=== PATIENT | male | born 1960 | race Caucasian/White ===

== ENCOUNTER 2017-08-14 14:47 | Emergency (ER) | payer OTHER ==
[~2017-08-14] VITALS: Ht 172.7 cm; Wt 83.3 kg
[2017-08-14] MEDS ORDERED: ATENOLOL25 MG PO (15:31)
[2017-08-14] MEDS ORDERED: OXYCONTIN30 MG PO (15:33)
[2017-08-14] MEDS ORDERED: OXYCODONE HCL30 MG PO (15:34)
[2017-08-14] MEDS ORDERED: HYDROCHLOROTHIA25 MG PO (15:35)
[2017-08-14] MEDS ORDERED: IRBESARTAN300 MG PO (15:35)
[2017-08-14 18:31] VITALS: BP 100/76
== END 2017-08-14 18:31 | disposition home or self-care (01) ==
LOC: EME 14:47
DX: S01.21XA Laceration without foreign body of nose, initial encounter (principal); S02.2XXA Fracture of nasal bones, initial encounter for closed fracture; S09.90XA Unspecified injury of head, initial encounter; W01.198A Fall on same level from slipping, tripping and stumbling with subsequent striking against other object, initial encounter; W20.8XXA Other cause of strike by thrown, projected or falling object, initial encounter; Y92.008 Other place in unspecified non-institutional (private) residence as the place of occurrence of the external cause; Z23 Encounter for immunization; I10 Essential (primary) hypertension; Z87.891 Personal history of nicotine dependence; Z88.8 Allergy status to other drugs, medicaments and biological substances
CPT/HCPCS: 70450; 70486; 72125; 99281; 99284